=== PATIENT | female | born 1965 | race Caucasian/White ===

== ENCOUNTER 2023-01-23 07:55 | Day surgery (SDC) | payer MEDICARE, OTHER ==
[~2023-01-23] VITALS: Ht 162.6 cm; Wt 83.2 kg
[~2023-01-23 07:55] MED LIST: ALBU90OI INH; ARIP10 PO; ATOR80 PO; CEPH500 PO; CODACE30 PO; DILT120 PO; DILT120ERA; DILTIAZEM 120 MG; FEXPSEER PO; HYDACE5 PO; LOVA20; OMEP20ER PO; RANI150 PO; RISP4 PO; SERT100 PO; THERA-D2000 UNIT PO
--- NOTE | 2023-01-23 09:04 | NUR ---
01/23/23 0904 Erik Coles HISTORY, CHART, MEDICATIONS AND ALLERGIES REVIEWED BEFORE START OF PROCEDURE. PATIENT CONFIRMS NPO STATUS AND AGREES WITH SCHEDULED PROCEDURE. 3-LEAD EKG REVIEWED WITH PHYSICIAN PRIOR TO START OF PROCEDURE. MONITOR INTACT WITH CONTINUOUS PULSE OXIMETRY,CAPNOGRAPHY, 3-LEAD EKG, INTERMITTENT BP. SUPPLEMENTAL O2 TO BE TITRATED THROUGHOUT PROCEDURE TO MAINTAIN O2 SATURATION ABOVE 90%. PATIENT DETERMINED TO BE ASA APPROPRIATE FOR PROPOFOL SEDATION PRIOR TO START OF PROCEDURE BY DR. GRIJALVA
--- NOTE | 2023-01-23 09:35 | NUR ---
REPORT RECEIVED FROM MEERA RENTERIA RN. VSS. PT INSTRUCTED TO TAKE DEEP BREATHS. PT ABLE TO REPOSITION SELF IN BED. PT REQUESTING PO FLUIDS AND TOLERATING THEM WELL.
--- NOTE | 2023-01-23 10:07 | NUR ---
Patient up to Ambulate independently. Gait steady. Discharge instructions reviewed with patient. Patient verbalizes understanding. Copy given to patient to take home. VSS AND CONSISTENT WITH PT BASELINE. Patient States Post-Procedure ride home has been arranged. Discharged via wheelchair to private car for ride home. PT BELONGINGS RETURNED TO PT.
== END 2023-01-23 22:46 | disposition home or self-care (01) ==
LOC: ORSCMMR 07:55 → ORD 09:30 → ORSCMMR 22:46
PROVIDERS: Internal Medicine Gastroenterology
PROC: 0DB48ZX Excision of Esophagogastric Junction, Via Natural or Artificial Opening Endoscopic, Diagnostic (ICD-10-PCS; principal; 2023-01-23 09:30)
PROC: 0DB68ZX Excision of Stomach, Via Natural or Artificial Opening Endoscopic, Diagnostic (ICD-10-PCS; principal; 2023-01-23 09:30)
PROC: 0D758ZZ Dilation of Esophagus, Via Natural or Artificial Opening Endoscopic (ICD-10-PCS; principal; 2023-01-23 09:30)
DX: R13.10 Dysphagia, unspecified (principal); K44.9 Diaphragmatic hernia without obstruction or gangrene; K22.10 Ulcer of esophagus without bleeding; K21.00 Gastro-esophageal reflux disease with esophagitis, without bleeding; F25.9 Schizoaffective disorder, unspecified; I48.0 Paroxysmal atrial fibrillation; E78.00 Pure hypercholesterolemia, unspecified; Z79.899 Other long term (current) drug therapy
CPT/HCPCS: 88305; 88312; 88342; A9270; C1726; J2704; J7120

== ENCOUNTER → 2023-06-06 | Outpatient (CLI) | payer MEDICARE, OTHER ==
[2023-06-06 17:51] LABS: BASOPHILS ABSOLUTE AUTO 0.06 K/mm3 (0.00-0.23); BASOPHILS PERCENT AUTO 1 % (0-2); EOSINOPHILS ABSOLUTE AUTO 0.42 K/mm3 (0.00-0.68); EOSINOPHILS PERCENT AUTO 5 % (0-6); Hemoglobin 14.9 g/dL (11.5-16.0); IMMATURE GRAN ABSOLUTE AUTO 0.02 K/mm3 (0.00-0.10); IMMATURE GRAN PERCENT AUTO 0 % (0-1); LYMPHOCYTES ABSOLUTE AUTO 2.62 K/mm3 (0.84-5.20); LYMPHOCYTES PERCENT AUTO 32 % (21-46); MONOCYTES ABSOLUTE AUTO 0.54 K/mm3 (0.16-1.47); MONOCYTES PERCENT AUTO 7 % (4-13); Mean Corpuscular HGB 30.3 pg (26.0-34.0); Mean Corpuscular HGB Conc 33.1 g/dL (31.5-36.5); Mean Corpuscular Volume 92 fL (80-100); Mean Platelet Volume 12.6 fL (9.1-12.4); NEUTROPHILS ABSOLUTE AUTO 4.61 K/mm3 (1.96-9.15); NEUTROPHILS PERCENT AUTO 56 % (41-73); Platelet Count 157 K/mm3 (150-400); RDW Coefficient Variation 13.8 % (11.7-14.2); RDW Standard Deviation 46.3 fL (35.1-46.3); Red Blood Cell Count 4.92 M/mm3 (3.80-5.20); White Blood Cell Count 8.27 K/mm3 (4.00-11.30)
[2023-06-06 18:06] LABS: Alanine Aminotransfer (ALT/SGP 29 U/L (12-78); Albumin, Blood 4.3 g/dL (3.4-5.0); Albumin/Globulin Ratio 1.3 (0.8-1.8); Alk Phos 96 U/L (50-136); Anion Gap 7 mmol/L (6-16); Aspartate Aminotrans (AST/SGOT 25 U/L (12-37); Bilirubin, Total 1.9 mg/dL (0.1-1.0); Blood Urea Nitrogen 4 mg/dL (8-24); CHOL/HDL RATIO 2.9; CO2, Blood 31 mmol/L (21-32); Calcium, Blood 9.1 mg/dL (8.5-10.1); Chloride, Blood 103 mmol/L (98-108); Cholesterol 150 mg/dL (50-200); Globulin, Blood 3.4 g/dL (2.2-4.0); Glomerular Filtration Rate 86 (60-); Glucose, Blood 108 mg/dL (70-99); HDL Cholesterol 52 mg/dL (>39); Low Density Lipoprotein Chol 53 mg/dL (0-110); Potassium, Blood 3.6 mmol/L (3.5-5.5); Sodium, Blood 141 mmol/L (136-145); Total Protein, Blood 7.7 g/dL (6.4-8.2); Triglycerides 223 mg/dL (30-160); Very Low Density Lipoprot Chol 44 mg/dL (6-32)
[2023-06-07 20:09] LABS: HEMOGLOBIN A1C 5.3 % (4.8-5.6)
== END ==
LOC: LAB SHORT 14:05 → LAB 14:05
PROVIDERS: Family Medicine
DX: R63.1 Polydipsia (principal); R53.83 Other fatigue; E78.2 Mixed hyperlipidemia
CPT/HCPCS: 80053; 80061; 83036; 84443; 85025

== ENCOUNTER 2023-06-26 07:26 | Day surgery (SDC) | payer MEDICARE, OTHER ==
[~2023-06-26] VITALS: Ht 162.6 cm; Wt 87.7 kg
[2023-06-26] VITALS (13 sets, daily range): BP systolic 120–195; BP diastolic 73–147
[~2023-06-26 07:26] MED LIST changes: +Benztropine Me0.5 MG PO; +Cyclobenzaprine5 MG PO; +DILT60ER PO; +RISP.5 PO; +RISP1 PO; +VITAMIN D32000 UNI1 PO
[2023-06-26] MEDS ORDERED: QUET200 PO (08:06)
--- NOTE | 2023-06-26 08:49 | NUR ---
Ambulatory in Day Surgery. History, Chart, Medications and Allergies reviewed before start of procedure. Lungs clear T/O to Auscultation. Patient confirms NPO status and agrees with scheduled surgery. Pre-Op teaching done. Pt verbalizes understanding. Patient States Post-Procedure ride home has been arranged.
--- NOTE | 2023-06-26 09:49 | NUR ---
06/26/23 0949 Radha Stewart HISTORY, CHART, MEDICATIONS AND ALLERGIES REVIEWED BEFORE START OF PROCEDURE. PATIENT CONFIRMS NPO STATUS AND AGREES WITH SCHEDULED PROCEDURE. 3-LEAD EKG REVIEWED WITH PHYSICIAN PRIOR TO START OF PROCEDURE. MONITOR INTACT WITH CONTINUOUS PULSE OXIMETRY,CAPNOGRAPHY, 3-LEAD EKG, INTERMITTENT BP. SUPPLEMENTAL O2 TO BE TITRATED THROUGHOUT PROCEDURE TO MAINTAIN O2 SATURATION ABOVE 90%. PATIENT DETERMINED TO BE ASA APPROPRIATE FOR PROPOFOL SEDATION PRIOR TO START OF PROCEDURE BY .
--- NOTE | 2023-06-26 10:00 | NUR ---
REPORT RECIEVED. DR GRIJALVA AND FAMILY AT BEDSIDE. PT TOLERING PO FLUIDS. VSS ON ROOM AIR
--- NOTE | 2023-06-26 10:27 | NUR ---
Patient up to Ambulate independently. Gait steady. Discharge instructions reviewed with patient AND FAMILY Patient verbalizes understanding. Copy given to patient to take home. Discharged via wheelchair to private car for ride home.
== END 2023-06-26 10:28 | disposition home or self-care (01) ==
LOC: ORSCMMR 07:26 → ORD 08:30 → ORSCMMR 10:28
PROVIDERS: Internal Medicine Gastroenterology
PROC: 0D748ZZ Dilation of Esophagogastric Junction, Via Natural or Artificial Opening Endoscopic (ICD-10-PCS; principal; 2023-06-26 08:30)
PROC: 0DB48ZX Excision of Esophagogastric Junction, Via Natural or Artificial Opening Endoscopic, Diagnostic (ICD-10-PCS; principal; 2023-06-26 08:30)
DX: R13.10 Dysphagia, unspecified (principal); K20.90 Esophagitis, unspecified without bleeding; Z87.11 Personal history of peptic ulcer disease; K44.9 Diaphragmatic hernia without obstruction or gangrene; E78.00 Pure hypercholesterolemia, unspecified; F25.9 Schizoaffective disorder, unspecified; I48.0 Paroxysmal atrial fibrillation; Z79.899 Other long term (current) drug therapy
CPT/HCPCS: 88305; 88312; A9270; C1726; J2704; J7120

== ENCOUNTER → 2023-09-24 | Outpatient (CLI) | payer MEDICARE, OTHER ==
[~2023-09-24] MED LIST changes: +QUET200 PO
== END | disposition home or self-care (01) ==
LOC: LAB 11:10 → LAB SHORT 11:10
DX: N39.0 Urinary tract infection, site not specified (principal)
CPT/HCPCS: 87086

== ENCOUNTER 2024-03-01 17:06 | Observation (INO) | payer MEDICARE, OTHER ==
[~2024-03-01] VITALS: Ht 157.5 cm; Wt 71.0 kg
[2024-03-01] MEDS ORDERED: HALO5 PO (17:58)
[2024-03-01 18:15] LABS: BASOPHILS ABSOLUTE AUTO 0.04 K/mm3 (0.00-0.23); BASOPHILS PERCENT AUTO 1 % (0-2); EOSINOPHILS ABSOLUTE AUTO 0.24 K/mm3 (0.00-0.68); EOSINOPHILS PERCENT AUTO 3 % (0-6); Hematocrit 41.6 % (33.0-51.0); Hemoglobin 14.3 g/dL (11.5-16.0); IMMATURE GRAN ABSOLUTE AUTO 0.02 K/mm3 (0.00-0.10); IMMATURE GRAN PERCENT AUTO 0 % (0-1); LYMPHOCYTES ABSOLUTE AUTO 2.57 K/mm3 (0.84-5.20); LYMPHOCYTES PERCENT AUTO 32 % (21-46); MONOCYTES ABSOLUTE AUTO 0.57 K/mm3 (0.16-1.47); MONOCYTES PERCENT AUTO 7 % (4-13); Mean Corpuscular HGB 30.9 pg (26.0-34.0); Mean Corpuscular HGB Conc 34.4 g/dL (31.5-36.5); Mean Corpuscular Volume 90 fL (80-100); Mean Platelet Volume 12.4 fL (9.1-12.4); NEUTROPHILS ABSOLUTE AUTO 4.63 K/mm3 (1.96-9.15); NEUTROPHILS PERCENT AUTO 57 % (41-73); Platelet Count 167 K/mm3 (150-400); RDW Standard Deviation 46.1 fL (35.1-46.3); Red Blood Cell Count 4.63 M/mm3 (3.80-5.20); White Blood Cell Count 8.07 K/mm3 (4.00-11.30)
[2024-03-01 18:38] LABS: Albumin, Blood 3.6 g/dL (3.4-5.0); Albumin/Globulin Ratio 1.3 (0.8-1.8); Bun/Creatinine Ratio 7.8 (12.0-20.0); Calcium, Blood 8.9 mg/dL (8.5-10.1); Creatinine, Blood 0.64 mg/dL (0.40-1.00); Globulin, Blood 2.8 g/dL (2.2-4.0); Potassium, Blood 3.7 mmol/L (3.5-5.5); Total Protein, Blood 6.4 g/dL (6.4-8.2)
[2024-03-01] MEDS ORDERED: LORazepam 2 MG/ML 1ML Injection IV ONE (18:40)
[2024-03-01 19:42] LABS: Source, Urine Straight Cath
[2024-03-01 19:53] LABS: Bilirubin, Urine Neg (Neg); Blood, Urine Neg (Neg); Glucose Qualitative, Urine Neg (Neg); Ketones, Urine Neg (Neg); Leukocyte Esterase, Urine 1+ (Neg); Nitrite, Urine Neg (Neg); Protein, Urine Neg (Neg); Specific Gravity, Urine 1.005 (1.003-1.022); Urobilinogen, Urine NORM (Normal)
[2024-03-01 19:59] LABS: Appearance, Urine Clear (Clear); Color, Urine Pale Yellow (P-Yellow)
[2024-03-01 20:00] LABS: Bacteria Rare /hpf; Red Blood Cells, Urine Not Seen /hpf (0-2); Squamous Epithelial Cells Few /hpf (Few); White Blood Cells, Urine 0-2 /hpf (0-5)
[2024-03-01 20:13] LABS: U Amphetamine Screen Not Detected; U Barbituate Screen Not Detected; U Benzodiazapine Screen Not Detected; U Buprenorphine Screen Not Detected; U Cannabinoids Screen DETECTED; U Cocaine Screen Not Detected; U Methadone Screen Not Detected; U Methamphetamine Screen Not Detected; U Opiates Screen Not Detected; U Oxycodone Screen Not Detected; U Phencyclidine Screen Not Detected
[2024-03-01] MEDS ORDERED: Ondansetron 4 MG TAB PO PRN (22:10)
[2024-03-01] MEDS ORDERED: NS 1,000 ML IV SCH (22:10)
[2024-03-01] MEDS ORDERED: Bisacodyl 10 MG Supp PR PRN (22:10)
[2024-03-01] MEDS ORDERED: Magnesium Hydroxide Conc 10 ML UDC PO PRN (22:15)
[2024-03-01] MEDS ORDERED: Acetaminophen 325 MG TABLET PO PRN (22:15)
[2024-03-01] MEDS ORDERED: Diazepam 5 MG Tab PO SCH (22:30)
[2024-03-01 22:55] VITALS: BP 146/95
[2024-03-01] MEDS ORDERED: Haloperidol 5 MG Tab PO SCH (23:00)
[2024-03-01] MEDS ORDERED: Metoprolol Tartrate 25 MG Tab PO ONE (23:00)
[2024-03-02 04:05] VITALS: BP 98/68
--- NOTE | 2024-03-02 05:49 | NUR ---
SHIFT SUMMARY PT A&OX3 AND ANSWERS QUESTIONS APPROPRIATELY. PT DAUGHTER PRESENT UPON ADMISSION AND ASSISTED IN COMPLETING SHIFT ASSESSMENT. PT SHOWS SOME TYPE OF DEVELOPMENTAL DELAY IN CONVERSATION AND ACTIONS. PT HAS UPPER DENTURES BUT DID NOT BRING LOWER DENTURES. PT STATES BEING UNABLE TO EAT FOOD THAT IS NOT SOFT AND HAS DIFFICULTIES AT HOME WITH ASPIRATION. PT COULD BENEFIT WITH SPEECH THERAPY. PT TO RECEIVE MRI BUT REQUESTED THE DAUGHTER BE PRESENT PRIOR TO MRI. PT VOICES CLAUSTROPHOBIA WHEN DISCUSSING MRI. VSS, NO COMPLAINTS OF CP OR SOB. NO ACUTE EVENTS AT THIS TIME. CALL LIGHT IN REACH.
[2024-03-02] MEDS ORDERED: Omeprazole 20 MG CapCR PO SCH (06:00)
[2024-03-02 07:13] VITALS: BP 99/79
[2024-03-02] MEDS ORDERED: Cholecalciferol 1000 Unit Tablet (=25MCG) PO SCH (09:00)
[2024-03-02] MEDS ORDERED: Atorvastatin 40 MG Tab PO SCH (09:00)
[2024-03-02] MEDS ORDERED: Famotidine 20 MG Tab PO SCH (09:00)
[2024-03-02] MEDS ORDERED: dilTIAZem HCL 60 MG CAP.SR PO SCH (09:00)
[2024-03-02] MEDS ORDERED: Sertraline HCl 100 MG Tab PO SCH (09:00)
[2024-03-02] MEDS ORDERED: Sennosides 8.6 MG Tab PO SCH (09:00)
[2024-03-02] MEDS ORDERED: Docusate Sodium 100 MG Cap PO SCH (09:00)
[2024-03-02 09:54] VITALS: BP 104/77
--- NOTE | 2024-03-02 09:55 | NUR ---
SPOKE TO DR SIMPSON- PER DR TATIANA CUEVAS TO BE GIVEN IF SBP IS GREATER THAN 105. LOUISA WAS PREVIOUSLY DC'D. ORDER TO BE RESUMED.
[2024-03-02] MEDS ORDERED: Aspirin 81 MG Chew PO ONE (12:15)
[2024-03-02 14:39] VITALS: BP 106/80
[2024-03-02] MEDS ORDERED: ASPIR 8181 M1 PO (15:47)
--- NOTE | 2024-03-02 18:25 | NUR ---
DISCHARGE NOTE- DAUGHTER ARRIVED AT THE BEDSIDE. CALLED DR GREGORY AND HE CAME TO SPEAK TO THE FAMILY ABOUT THE TEST RESULTS. FAMILY HAD NO FURTHER QUESTIONS AT THE TIME OF DISCHARGE. IV AND TELE DC'D PRIOR TO DISCHARGE. PT ESCORTED OUT VIA WC NO S&S OF DISTRESS AT THE TIME OF DISCHARGE.
[2024-03-02] MEDS ORDERED: Cyclobenzaprine HCl 10 MG Tab PO SCH (21:00)
[2024-03-03] MEDS ORDERED: dilTIAZem HCL 60 MG CAP.SR PO SCH (09:00)
== END 2024-03-02 17:15 | disposition home or self-care (01) ==
LOC: ER 17:06 → MEDS 17:07 → ENPENDDIS 03-02 16:20 → MEDS 03-02 17:15
PROVIDERS: Physician Assistant; Student in an Organized Health Care Education/Training Program; ADMIT Hospitalist
DX: R13.10 Dysphagia, unspecified (principal); F25.9 Schizoaffective disorder, unspecified; I48.0 Paroxysmal atrial fibrillation; I10 Essential (primary) hypertension; K59.00 Constipation, unspecified; Z66 Do not resuscitate; Z29.89 Encounter for other specified prophylactic measures; Z79.899 Other long term (current) drug therapy
CPT/HCPCS: 70450; 70551; 74177; 80053; 81001; 85025; 92610; 93005; 93010; 96374-59; 97110; 97161; 99285-25; A9270; G0378; J2060; Q9967